=== PATIENT | male | born 1935 | race Caucasian/White ===

== ENCOUNTER → 2020-04-25 | Outpatient (CLI) | payer MEDICARE, BC ==
[~2020-04-25] MED LIST: ASPIRIN 32325 MG/TAB PO; CRESTOR5 MG PO; FLEXERIL 1010 MG/TAB PO; NAPROSYN500 MG PO; NORVASC 10MG10 MG PO; PERCOCET 325 MG1 TA2 PO; TENORMIN 2525 MG/TAB PO
== END ==
LOC: COL.VAS
DX: Z13.6 Encounter for screening for cardiovascular disorders (principal); R60.0 Localized edema